=== PATIENT | female | born 1935 | race Caucasian/White ===

== ENCOUNTER 2016-11-04 13:17 | Emergency (ER) | payer MEDICARE ==
[2016-11-04 13:53] VITALS: BP 137/57
--- NOTE | 2016-11-04 14:24 | UC ---
Lower Extremity/Ankle HPI - HPI Summary HPI Summary: For about 2 weeks has had burning pain on lateral aspect of L 5th toe, mainly feels pain when there is pressure on the area. Denies known injury or past trauma. No hx of DM or neuropathy in feet. Would really like a cortisone shot in the area because it worked so well in L shoulder. - History of Current Complaint Chief Complaint: UCLowerExtremity Stated Complaint: LEFT PINKY TOE INJURY Time Seen by Provider: 11/04/16 13:55 Hx Obtained From: Patient ?: No Onset/Duration: Gradual Onset, Lasting Weeks Severity Initially: Mild Severity Currently: Mild Aggravating Factor(s): Other - wearing shoe Able to Bear Weight: Yes - Allergies/Home Medications Allergies/Adverse Reactions: Allergies Allergy/AdvReac Type Severity Reaction Status Date / Time Penicillin G Allergy Intermediate Hives Verified 11/04/16 13:53 Sulfa Drugs Allergy Intermediate Hives Verified 11/04/16 13:53 PMH/Surg Hx/FS Hx/Imm Hx Cardiovascular History Of: Reports: Hypertension Respiratory History Of: Reports: COPD - Surgical History Surgical History: Yes Surgery Procedure, Year, and Place: bone removed from ear - Family History Known Family History: Positive: Hypertension - Social History Occupation: Retired Lives: Alone Alcohol Use: None Substance Use Type: None Smoking Status (MU): Never Smoked Tobacco When Did the Patient Quit Smoking/Using Tobacco: 1956 - Immunization History Most Recent Influenza Vaccination: 2012 Review of Systems Constitutional: Negative Skin: Other - L 5th toe pain Eyes: Negative ENT: Negative Respiratory: Negative Cardiovascular: Negative Gastrointestinal: Negative Genitourinary: Negative Motor: Negative Neurovascular: Negative Musculoskeletal: Negative Neurological: Negative Psychological: Negative All Other Systems Reviewed And Are Negative: Yes Physical Exam Triage Information Reviewed: Yes Appearance: Well-Appearing, No Pain Distress, Well-Nourished Vital Signs: Initial Vital Signs Temp 98.1 F 11/04/16 13:46 Pulse 91 11/04/16 13:46 Resp 18 11/04/16 13:46 BP 137/57 11/04/16 13:46 Pulse Ox 93 11/04/16 13:46 Vital Signs Reviewed: Yes Eye Exam: Other - PERRL Eyes: Positive: Conjunctiva Clear ENT Exam: Normal ENT: Positive: Normal ENT inspection, Hearing grossly normal, Pharynx normal, TMs normal. Negative: Tonsillar swelling, Tonsillar exudate Dental Exam: Normal Neck exam: Normal Neck: Positive: Supple, Nontender, No Lymphadenopathy Respiratory Exam: Normal Respiratory: Positive: Chest non-tender, Lungs clear, Normal breath sounds, No respiratory distress, No accessory muscle use Cardiovascular Exam: Normal Cardiovascular: Positive: RRR, No Murmur Musculoskeletal Exam: Normal Musculoskeletal: Positive: Strength Intact, ROM Intact Neurological Exam: Normal Neurological: Positive: Alert Psychological Exam: Normal Skin Exam: Other - sensitive area of skin on L 5th toe shows no erythema, drainage, inflammation, or ingrown nail. Lower Extremity Course/Dx - Differential Dx/Diagnosis Provider Diagnoses: L 5th toe cutaneous nerve pain Discharge - Discharge Plan Condition: Stable Disposition: HOME Patient Education Materials: Neurapraxia (ED) Referrals: Jarod Max MD [Primary Care Provider] - Additional Instructions: Your pain may be a temporary injury that can get better once you take the pressure off the area. I recommend you see your primary care provider after a week of protection -- if you are not improving, you may consider other medical therapy. This does not look like a joint problem, so I do not think an injection is appropriate (or helpful).
== END 2016-11-04 14:15 | disposition home or self-care (01) ==
LOC: UCCORT 13:17
DX: M79.2 Neuralgia and neuritis, unspecified (principal); I10 Essential (primary) hypertension; J44.9 Chronic obstructive pulmonary disease, unspecified; Z88.0 Allergy status to penicillin; Z88.2 Allergy status to sulfonamides; Z87.891 Personal history of nicotine dependence
CPT/HCPCS: 99213; G0463

== ENCOUNTER 2016-11-20 07:03 | Emergency (ER) | payer MEDICARE ==
[2016-11-20 07:10] VITALS: BP 130/75
--- NOTE | 2016-11-20 07:23 | UC ---
Ear Complaint HPI - HPI Summary HPI Summary: Plastic bit of hearing aide is lodged in her left ear. - History of Current Complaint Chief Complaint: UCForeignBody Stated Complaint: FB IN LEFT EAR Time Seen by Provider: 11/20/16 07:12 Hx Obtained From: Patient ?: No Onset/Duration: Sudden Onset, Lasting Hours Severity Initially: Mild Severity Currently: Mild Aggravating Factors: FB Alleviating Factors: Nothing Associated Signs/Symptoms: Positive: Foreign Body Sensation - Allergies/Home Medications Allergies/Adverse Reactions: Allergies Allergy/AdvReac Type Severity Reaction Status Date / Time Penicillin G Allergy Intermediate Hives Verified 11/20/16 07:10 Sulfa Drugs Allergy Intermediate Hives Verified 11/20/16 07:10 PMH/Surg Hx/FS Hx/Imm Hx Previously Healthy: Yes Cardiovascular History Of: Reports: Hypertension Respiratory History Of: Reports: COPD - Surgical History Surgical History: Yes Surgery Procedure, Year, and Place: bone removed from ear. 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 with reconstruction - Family History Known Family History: Positive: Cardiac Disease - mother had pacemaker, Hypertension - father - Social History Occupation: Retired Lives: With Family Alcohol Use: None Substance Use Type: None Smoking Status (MU): Never Smoked Tobacco When Did the Patient Quit Smoking/Using Tobacco: 1956 - Immunization History Most Recent Influenza Vaccination: 2012 Review of Systems Constitutional: Negative Skin: Negative Eyes: Negative ENT: Ear Ache Respiratory: Negative Cardiovascular: Negative Gastrointestinal: Negative Genitourinary: Negative Motor: Negative Neurovascular: Negative Musculoskeletal: Negative Neurological: Negative Psychological: Negative All Other Systems Reviewed And Are Negative: Yes Physical Exam Triage Information Reviewed: Yes Appearance: Well-Appearing Vital Signs: Initial Vital Signs Temp 98 F 11/20/16 07:05 Pulse 81 11/20/16 07:05 Resp 16 11/20/16 07:05 BP 130/75 11/20/16 07:05 Pulse Ox 97 11/20/16 07:05 Vital Signs Reviewed: Yes Eyes: Positive: Conjunctiva Clear ENT: Positive: Other: - foreign body left ear canal. Easily removed plastic cup of hearing aide from left ear canal with alligator forceps. Dental: Positive: Other: - upper denture Neck exam: Normal Respiratory: Positive: Lungs clear Cardiovascular: Positive: RRR, No Murmur Skin Exam: Other - ++ actinic change. Procedures - Procedure Summary Procedure Summary: foreign body easily removed from ear canal with alligator forceps. Ear Complaint Course/Dx - Course Course Of Treatment: removal of foreign body left ear. - Differential Dx/Diagnosis Differential Diagnosis/HQI/PQRI: Trauma, Other - foreign body Provider Diagnoses: foreign body left ear canal Discharge - Discharge Plan Condition: Stable Disposition: HOME Patient Education Materials: Ear Foreign Body (ED)
== END 2016-11-20 07:28 | disposition home or self-care (01) ==
LOC: UCCORT 07:03
DX: T16.2XXA Foreign body in left ear, initial encounter (principal); W45.8XXA Other foreign body or object entering through skin, initial encounter
CPT/HCPCS: 69200; 99211; G0463

== ENCOUNTER 2016-12-23 07:04 | Emergency (ER) | payer MEDICARE ==
[2016-12-23 07:17] VITALS: BP 130/77
--- NOTE | 2016-12-23 07:29 | UC ---
Back Pain HPI - HPI Summary HPI Summary: 81 yo female with left sciatica on and off x 5 yrs Can't have MRI due to ear implant 2 wks ago had injection at [facility] pain worse worse with wt bearing radiates down lateral left leg to foot pains are brief (minutes) but severe no bowel or bladder dysfunction no hx CA - History of Current Complaint Chief Complaint: UCLowerExtremity Stated Complaint: LOWER BACK/LEFT LEG PAIN Time Seen by Provider: 12/23/16 07:19 Hx Obtained From: Patient Onset/Duration: Gradual Onset, Lasting Weeks Timing: Intermittent, Lasting Minutes Severity Initially: Severe Severity Currently: None Pain Intensity: 0 - 8-10 when she has the pains Pain Scale Used: 0-10 Numeric Back Pain: Radiates To - left leg Character: Sharp, Burning Aggravating: Movement Alleviating: Rest Associated Signs And Symptoms: Positive: Pain with Weight Bearing Related History: Similar Episode Dx As - sciatica - Allergies/Home Medications Allergies/Adverse Reactions: Allergies Allergy/AdvReac Type Severity Reaction Status Date / Time Penicillin G Allergy Intermediate Hives Verified 12/23/16 07:17 Sulfa Drugs Allergy Intermediate Hives Verified 12/23/16 07:17 PMH/Surg Hx/FS Hx/Imm Hx Previously Healthy: Yes Cardiovascular History: Hypertension - Surgical History Surgical History: Yes Surgery Procedure, Year, and Place: bone removed from ear. 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 with reconstruction - Family History Known Family History: Positive: Cardiac Disease - mother had pacemaker, Hypertension - father - Social History Alcohol Use: None Substance Use Type: None Smoking Status (MU): Never Smoked Tobacco When Did the Patient Quit Smoking/Using Tobacco: 1956 - Immunization History Most Recent Influenza Vaccination: 2012 Review of Systems Constitutional: Negative Skin: Negative Eyes: Negative ENT: Negative Respiratory: Negative Cardiovascular: Negative Gastrointestinal: Negative Genitourinary: Negative Motor: Negative Neurovascular: Negative Musculoskeletal: Arthralgia Neurological: Negative Psychological: Negative All Other Systems Reviewed And Are Negative: Yes Physical Exam Triage Information Reviewed: Yes Appearance: Well-Appearing, No Pain Distress, Well-Nourished Vital Signs: Initial Vital Signs Temp 98 F 12/23/16 07:10 Pulse 70 12/23/16 07:10 Resp 16 12/23/16 07:10 BP 130/77 12/23/16 07:10 Pulse Ox 97 12/23/16 07:10 Vital Signs Reviewed: Yes Eyes: Positive: Conjunctiva Clear ENT: Negative: Hearing grossly normal, Nasal congestion, Nasal drainage, Trismus , Muffled/hoarse voice Neck: Positive: Supple, Nontender Respiratory: Positive: Lungs clear, Normal breath sounds, No respiratory distress, No accessory muscle use Cardiovascular: Positive: RRR. Negative: Tachycardia, Bradycardia Musculoskeletal: Positive: ROM Intact, No Edema Neurological: Positive: Alert, Muscle Tone Normal, Other: - (-) SLR dtrs symmetrical great toe down going slightly antalgic gait Psychological Exam: Normal Skin Exam: Normal Back Pain Course/Dx - Differential Dx/Diagnosis Provider Diagnoses: Dengerative Disc Disease. left sciatica Discharge - Discharge Plan Condition: Stable Disposition: HOME Prescriptions: Gabapentin CAP(*) [Neurontin 300 CAP(*)] 300 mg PO TID #42 cap Patient Education Materials: Sciatica (ED) Referrals: Jarod Max MD [Primary Care Provider] - 2 Weeks Additional Instructions: continue your naproxsyn 500mg twice daily with food
--- NOTE | 2016-12-23 08:02 | RAD ---
INDICATION: Left sciatica. COMPARISON: There are no prior studies available for comparison. TECHNIQUE: 5 views of the lumbar spine were obtained including lateral, oblique, AP and a coned-down lateral view of the lumbar sacral junction. FINDINGS: The vertebra are in normal alignment. No fracture is seen. There is moderate to severe disc space narrowing and endplate or vertebral changes at the L1-L2, L2-L3, L3-L4 and L4-L5 levels consistent with moderate to severe degenerative disc disease. 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
== END 2016-12-23 08:45 | disposition home or self-care (01) ==
LOC: UCCORT 07:04
DX: M51.37 Other intervertebral disc degeneration, lumbosacral region (principal); M54.32 Sciatica, left side
CPT/HCPCS: 72110; 99212; G0463

== ENCOUNTER 2017-09-28 08:54 | Emergency (ER) | payer MEDICARE ==
[2017-09-28 09:19] VITALS: BP 125/65
[2017-09-28] MEDS ORDERED: Albuterol 2.5 MG/3 ML NEB.SOL* (0.083%) INH ONE (09:36)
[2017-09-28] MEDS ORDERED: methylPREDNISolone 125 MG* 2 ML VIAL IM ONE (09:36)
[2017-09-28] MEDS ORDERED: Albuterol/Ipratropium NEB.SOL* Albuterol 2.5 MG/Ipratropium 0.5 MG 3 ML INH ONE (09:36)
--- NOTE | 2017-09-28 09:41 | UC ---
Respiratory Complaint HPI - HPI Summary HPI Summary: Cough and congestion and chest tightness for about one week. Albuterol puffer is not helping. Mucinex helps a little. She has no other respiratory meds but does have copd. Not on oxygen. No fever, cp, hemoptysis. - History of Current Complaint Chief Complaint: UCRespiratory Stated Complaint: CONGESTION, HEADACHE Time Seen by Provider: 09/28/17 09:35 Hx Obtained From: Patient Onset/Duration: Gradual Onset, Lasting Days Timing: Constant Severity Initially: Moderate Severity Currently: Moderate Pain Intensity: 0 Character: Cough: Productive - yellow sputum. Aggravating Factors: Deep Breaths, Recumbent Position Alleviating Factors: Upright Position, Spontaneous Resolution Associated Signs And Symptoms: Positive: URI, Nasal Congestion. Negative: Fever , Chills, Calf Pain, Calf Swelling - Allergies/Home Medications Allergies/Adverse Reactions: Allergies Allergy/AdvReac Type Severity Reaction Status Date / Time Penicillins Allergy Hives Verified 09/28/17 09:02 Sulfa (Sulfonamide Allergy Hives Verified 09/28/17 09:02 Antibiotics) Home Medications: Home Medications dilTIAZem HCl [Diltiazem ER] 120 mg PO DAILY 09/28/17 [History Confirmed ] guaiFENesin ER TAB [Mucinex*] 600 mg PO BID 09/28/17 [History Confirmed 09/28/17 ] PMH/Surg Hx/FS Hx/Imm Hx Previously Healthy: No - chronic lung disease. - Surgical History Surgical History: Yes Surgery Procedure, Year, and Place: stapes bone removed from ear with wire. 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, No Pain Distress, Well-Nourished Vital Signs: Initial Vital Signs Temp 98.2 F 09/28/17 09:14 Pulse 78 09/28/17 09:14 Resp 32 09/28/17 09:14 BP 125/65 09/28/17 09:14 Pulse Ox 95 09/28/17 09:14 Vital Signs Reviewed: Yes Eyes: Positive: Conjunctiva Clear. Negative: Conjunctiva Inflamed ENT: Positive: Normal ENT inspection, Pharynx normal Neck: Positive: Supple, Nontender, No Lymphadenopathy Respiratory: Positive: No respiratory distress, Decreased breath sounds, Wheezing, Other: - decreased breath sound and wheezing throughout.. Negative: Accessory muscle use, Crackles, Rhonchi, Stridor Cardiovascular: Positive: No Murmur, Pulses Normal, Brisk Capillary Refill Abdomen Description: Positive: No Organomegaly, Soft. Negative: Distended, Guarding Musculoskeletal: Positive: Strength Intact, ROM Intact, No Edema Neurological: Positive: Alert, Muscle Tone Normal. Negative: Fatigued Psychological: Positive: Age Appropriate Behavior, Abnormal Response To Family, Decreased Age Appropriate Behavior Skin Exam: Normal Skin: Positive: rashes UC Diagnostic Evaluation - Laboratory O2 Sat by Pulse Oximetry: 95 - Radiology Xray Interpretation: Positive (See Comments) - small nodule left leg. Radiology Interpretation Completed By: Radiologist Respiratory Course/Dx - Course Course Of Treatment: No pneumonia. She is better now after treatments. Improved air movement. We discussed small nodule in detail and she agrees to have this followed up with pcp. She also agrees to return for any worsening symptoms. - Differential Dx/Diagnosis Provider Diagnoses: acute copd exacerbation Discharge - Sign-Out/Discharge Documenting (check all that apply): Discharge - Discharge Plan Condition: Good Disposition: HOME Prescriptions: DOXYcycline CAP(*) [DOXYcycline 100MG CAP(*)] 100 mg PO BID #20 cap predniSONE TAB* [Deltasone TAB*] 20 mg PO DAILY #15 tab Patient Education Materials: COPD (Chronic Obstructive Pulmonary Disease) (ED) Referrals: Jarod Max MD [Primary Care Provider] - Additional Instructions: REturn here if you feel any worse. - Billing Disposition and Condition Condition: GOOD Disposition: HOME
--- NOTE | 2017-09-28 10:02 | RAD ---
INDICATION: Shortness of breath, productive cough, wheezing. Assess for pneumonia. COMPARISON: May 31, 2016 TECHNIQUE: Dual energy PA and routine lateral views of the chest were obtained. REPORT: Elevated lung volumes and chronic mild to moderate prominence of interstitial markings. A few subtle nodular subpleural densities are visualized at the peripheral LEFT lower lung zone measuring up to 5 mm maximum dimension increased from barely perceptible on the 2016 exam. Negative for pleural effusion or pneumothorax. The heart, pulmonary vasculature, and mediastinal contours are unremarkable. Unremarkable soft tissue contours and osseous structures for age. IMPRESSION: 1. Stigmata of chronic obstructive pulmonary disease. 2. No evidence for pneumonia. 3. Consider chest CT with IV contrast for further assessment given presence of a subtle nodular densities in the periphery of the LEFT lower lung zone as noted.
== END 2017-09-28 10:45 | disposition home or self-care (01) ==
LOC: UCCORT 08:54
DX: J44.1 Chronic obstructive pulmonary disease with (acute) exacerbation (principal); Z87.891 Personal history of nicotine dependence; Z88.0 Allergy status to penicillin; Z88.2 Allergy status to sulfonamides
CPT/HCPCS: 71046; 96372; 99212; A9270-GY; G0463; J2930

== ENCOUNTER 2018-07-14 12:41 | Emergency (ER) | payer MEDICARE ==
[2018-07-14 13:33] VITALS: BP 135/59
--- NOTE | 2018-07-14 14:14 | UC ---
Cardiac HPI - HPI Summary HPI Summary: Pt is an 83 year old female presents to with report of chest discomfort with deep inspiration. Pt denies sob. no cough. no fever, chills. no pain with palpation. No analgesia taken. Pt states has been present x 2 days. Pt reports 2 days ago was very dizzy when woke up. Pt states she fell to ground, no injuries, no loc - but dizziness resolved. Pt recently started advair by PCP. unsure diagnosis pt's medications reviewed this visit - History of Current Complaint Chief Complaint: UCChestPain Stated Complaint: CHEST PAIN Time Seen by Provider: 07/14/18 12:54 Hx Obtained From: Patient, Family/Lugger Onset/Duration: Gradual Onset, Lasting Days Pain Intensity: 10 - Allergy/Home Medications Allergies/Adverse Reactions: Allergies Allergy/AdvReac Type Severity Reaction Status Date / Time Penicillins Allergy Hives Verified 07/14/18 12:48 Sulfa (Sulfonamide Allergy Hives Verified 07/14/18 12:48 Antibiotics) Home Medications: Home Medications Albuterol 2.5MG/3ML (0.083%)* [Ventolin 2.5 MG/3 ML NEB.YUNG*] 2.5 mg INH Q4H PRN 07/14/18 [History Confirmed 07/14/18] Albuterol HFA INHALER* [Ventolin HFA Inhaler*] 1 - 2 puff INH Q4H PRN 07/14/18 [ History Confirmed 07/14/18] PMH/Surg Hx/FS Hx/Imm Hx Previously Healthy: Yes Cardiovascular History: Hypertension Respiratory History: Bronchitis - Surgical History Surgical History: Yes Surgery Procedure, Year, and Place: stapes bone removed from ear with wire. 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 with reconstruction - Family History Known Family History: Positive: Cardiac Disease - mother had pacemaker, Hypertension - father - Social History Occupation: Retired Alcohol Use: Occasionally Substance Use Type: None Smoking Status (MU): Former Smoker When Did the Patient Quit Smoking/Using Tobacco: 1956 - Immunization History Most Recent Influenza Vaccination: 2012 Review of Systems All Other Systems Reviewed And Are Negative: Yes Constitutional: Positive: Fatigue Respiratory: Positive: Other - pain with deep inspiration only Neurological: Positive: Other - dizziness 2 days ago Physical Exam - Summary Physical Exam Summary: Vital Signs Reviewed: Yes A+Ox3, no distress Eyes: Conjunctiva Clear, MALORIE. EOM intact and full ENT: Hearing grossly normal TM x 2 clear, mmoist, uvula midline, no exudate, no erythema Neck: Positive: Supple Respiratory: Positive: No respiratory distress, No accessory muscle use + CTA throughout no w/r Cardiovascular: RRR nl s1, s2 no m/r CBT <2 sec, no bruits, no chest wall pain abd soft + BS nt/nd no guarding, no distension Musculoskeletal Exam: DIAZ x 4 without difficulty Strength Intact, ROM Intact Neurological: Positive: Alert, + sensation throughout Psychological: Positive: Normal Response To Family Skin: Positive: no rash, no ecchymosis Triage Information Reviewed: Yes Vital Signs: Initial Vital Signs Temp 98.1 F 07/14/18 12:51 Pulse 89 07/14/18 12:51 Resp 20 07/14/18 12:51 BP 149/83 07/14/18 12:51 Pulse Ox 96 07/14/18 12:51 Diagnostics - EKG Cardiac Rate: NL Cardiac Rhythm: Sinus: Normal Ectopy: PVCs - 3 beat V tach - Assessment/Plan Course Of Treatment: pt presents with pleuritic cp. on EKG pt with 3 beat V tach - not symptomatic. pt reports dizziness 3 days ago - improved after falling - no injuries. recommend pt to ED for further eval. will hold ASA pt with h/o GI bleed and refused. elevated BP - h/o. IV. oxygen. tele. report to Arianne GAMEZ in [facility] - Clinical Impression Provider Diagnosis: Pleuritic chest pain, Ventricular tachycardia, non-sustained Discharge - Sign-Out/Discharge Documenting (check all that apply): Patient Departure All imaging exams completed and their final reports reviewed: No Studies - Discharge Plan Condition: Stable Disposition: TRANS HIGHER LVL OF CARE FAC Referrals: Jarod Max MD [Primary Care Provider] - - Billing Disposition and Condition Condition: STABLE Disposition: Trans Higher Lvl of Care Fac
== END 2018-07-14 13:33 | disposition short-term general hospital (02) ==
LOC: UCCORT 12:41
DX: R07.81 Pleurodynia (principal); I47.2 Ventricular tachycardia; Z88.0 Allergy status to penicillin; Z88.2 Allergy status to sulfonamides; I10 Essential (primary) hypertension; J40 Bronchitis, not specified as acute or chronic; Z87.891 Personal history of nicotine dependence
CPT/HCPCS: 93005; 99213; G0463